=== PATIENT | male | born 1950 | race Caucasian/White ===

== ENCOUNTER → 2018-09-20 | Outpatient (CLI) | payer MEDICARE | END | disposition home or self-care (01) | LOC: CFH 07:35 | PROVIDERS: ATTEND Internal Medicine Cardiovascular Disease | DX: R01.1 Cardiac murmur, unspecified (principal); R06.02 Shortness of breath; F17.200 Nicotine dependence, unspecified, uncomplicated; R29.898 Other symptoms and signs involving the musculoskeletal system | CPT/HCPCS: 78452; 93017; A9502 ==

== ENCOUNTER 2018-10-09 09:51 | Day surgery (SDC) | payer MEDICARE ==
[~2018-10-09] VITALS: Ht 185.4 cm; Wt 98.6 kg
[2018-10-09] MEDS ORDERED: SODIUM CHLORIDE 0.9% 1,000 ML IV SCH ×2 (10:25→13:02)
[2018-10-09] MEDS ORDERED: DIPHENHYDRAMINE 50 MG/ML, 1ML IVPush ONE (10:30)
[2018-10-09 10:36] VITALS: BP 140/85
[2018-10-09] MEDS ORDERED: CARV3.1212 PO (10:41)
[2018-10-09] MEDS ORDERED: ALBU18HF INH (10:41)
[2018-10-09] MEDS ORDERED: ASPI81TA45 PO (10:41)
[2018-10-09] MEDS ORDERED: ATOR20TA37 PO (10:41)
[2018-10-09] MEDS ORDERED: FLUT12AE INH (10:41)
[2018-10-09] MEDS ORDERED: DIPHENHYDRAMINE 50 MG/ML, 1ML ONE (10:52)
[2018-10-09] MEDS ORDERED: NITROGLYCERIN 5 MG/ML, 10ML ONE (12:17)
[2018-10-09] MEDS ORDERED: TICAGRELOR 90 MG TABLET ONE (12:17)
[2018-10-09] MEDS ORDERED: VERAPAMIL 2.5 MG/ML, 2ML ONE (12:17)
[2018-10-09] MEDS ORDERED: HEPARIN 1,000 UNITS/ML, 10ML ONE (12:17)
[2018-10-09] MEDS ORDERED: BIVALIRUDIN 250 MG ONE (12:17)
[2018-10-09] MEDS ORDERED: MIDAZOLAM 1 MG/ML, 5ML ONE (12:17)
[2018-10-09] MEDS ORDERED: FENTANYL PF 100 MCG/2ML ONE (12:17)
[2018-10-09] MEDS ORDERED: LIDOCAINE-MPF 1%, 5ML ONE (12:18)
== END 2018-10-09 15:46 | disposition home or self-care (01) ==
LOC: CACL 09:51
PROVIDERS: ATTEND Internal Medicine Cardiovascular Disease
DX: I25.10 Atherosclerotic heart disease of native coronary artery without angina pectoris (principal); J44.9 Chronic obstructive pulmonary disease, unspecified; I25.5 Ischemic cardiomyopathy; Z87.891 Personal history of nicotine dependence; Z72.89 Other problems related to lifestyle
CPT/HCPCS: 93458; 99156; C1769; C1894; J1200; J1644; J2250; J3010; J7030; Q9967; J0583

== ENCOUNTER → 2018-10-31 | Outpatient (CLI) | payer MEDICARE ==
[~2018-10-31] MED LIST: ALBU18HF INH; ASPI81TA45 PO; ATOR20TA37 PO; CARV3.1212 PO; FLUT12AE INH
== END | disposition home or self-care (01) ==
LOC: CFH 08:00
PROVIDERS: ATTEND Nurse Practitioner
DX: I25.10 Atherosclerotic heart disease of native coronary artery without angina pectoris (principal); I35.8 Other nonrheumatic aortic valve disorders; M47.813 Spondylosis without myelopathy or radiculopathy, cervicothoracic region
CPT/HCPCS: 71250

== ENCOUNTER → 2018-11-07 | Outpatient (CLI) | payer MEDICARE | END | disposition home or self-care (01) | LOC: CVU 08:15 | PROVIDERS: ATTEND Internal Medicine Cardiovascular Disease | DX: I65.23 Occlusion and stenosis of bilateral carotid arteries (principal); I10 Essential (primary) hypertension; I25.2 Old myocardial infarction; E78.5 Hyperlipidemia, unspecified; Z87.891 Personal history of nicotine dependence | CPT/HCPCS: 93880 ==

== ENCOUNTER → 2018-12-07 | Outpatient (CLI) | payer MEDICARE ==
[~2018-12-07] MED LIST changes: +ASPIRIN 325 MG TABLET ONE; +CHOL500015 PO; +FENTANYL PF 250 MCG/5ML ONE; +LIDOCAINE-MPF 2% ,5ML ONE; +LOSA25TA25 PO; +METO25TA35 PO; +MIDAZOLAM 1 MG/ML, 2ML ONE; +ONDA4TAB7 PO; +OXYC-306 PO
[2018-12-07 14:19] LABS: BASOPHILS # (AUTO) 0.01 x10^3/uL (0-0.1); BASOPHILS % (AUTO) 0 % (0-1); EOSINOPHILS # (AUTO) 0.05 x10^3/uL (0-0.4); EOSINOPHILS % (AUTO) 1 % (1-7); LYMPHOCYTES # (AUTO) 1.33 x10^3/uL (1-3.4); LYMPHOCYTES % (AUTO) 24 % (22-44); MD NO; MEAN CORPUSCULAR HEMOGLOBIN 30.8 pg (27.5-34.5); MEAN CORPUSCULAR VOLUME 93.4 fL (81-97); MEAN PLATELET VOLUME 8.2 fL (7.4-10.4); MONOCYTES # (AUTO) 0.28 x10^3/uL (0.2-0.8); MONOCYTES % (AUTO) 5 % (2-9); NEUTROPHILS % (AUTO) 71 % (42-75); PLATELET COUNT 209 x10^3/uL (130-400); RED BLOOD COUNT 4.95 x10^6/uL (4.38-5.82)
[2018-12-07 14:29] LABS: ALANINE AMINOTRANSFERASE 26 U/L (12-78); ALBUMIN 3.8 g/dL (3.4-5.0); ANION GAP 8 mmol/L (5-15); CALCIUM 9.4 mg/dL (8.5-10.1); CHLORIDE 106 mmol/L (98-107); CREATININE 1.07 mg/dL (0.7-1.3)
[2018-12-07 14:31] LABS: ALKALINE PHOSPHATASE 77 U/L (45-117); BILIRUBIN,TOTAL 0.6 mg/dL (0.2-1.0); TOTAL PROTEIN 7.5 g/dL (6.4-8.2)
== END | disposition home or self-care (01) ==
LOC: STAR 13:09
PROVIDERS: ATTEND Family Medicine
DX: Z01.818 Encounter for other preprocedural examination (principal); I65.22 Occlusion and stenosis of left carotid artery
CPT/HCPCS: 36415; 80053; 85025; 93005

== ENCOUNTER 2018-12-11 11:25 | Inpatient (IN) | payer MEDICARE ==
[~2018-12-11] VITALS: Ht 185.4 cm; Wt 101.0 kg
[~2018-12-11 11:25] MED LIST changes: -ASPIRIN 325 MG TABLET ONE; +BUPIVACAINE/EPI 0.5% 1:200K ONE; -FENTANYL PF 250 MCG/5ML ONE; +HEPARIN 1,000 UNITS/ML, 10ML ONE; -LIDOCAINE-MPF 2% ,5ML ONE; -MIDAZOLAM 1 MG/ML, 2ML ONE; -ONDA4TAB7 PO; -OXYC-306 PO; +PAPAVERINE 30 MG/ML, 2ML ONE; +PROTAMINE SULFATE 10 MG/ML, 5ML ONE; +THROMBIN 20,000 UNIT VIAL TP ONE
[2018-12-11] MEDS ORDERED: LIDOCAINE 1%, 20ML ONE (11:26)
[2018-12-11] MEDS ORDERED: LACTATED RINGERS 1,000 ML IV SCH (11:36)
[2018-12-11 11:56] VITALS: BP 132/83
[2018-12-11] MEDS ORDERED: NITROGLYCERIN/D5W PMX 250 ML ONE (12:58)
[2018-12-11] MEDS ORDERED: MIDAZOLAM 1 MG/ML, 5ML ONE (13:29)
[2018-12-11] MEDS ORDERED: ONDANSETRON 2MG/ML, 2ML IV PRN ×2 (13:30→18:30)
[2018-12-11] MEDS ORDERED: hydrALAzine 20 MG/ML, 1ML IV PRN ×2 (13:30→18:30)
[2018-12-11] MEDS ORDERED: MORPHINE SULFATE 4 MG/ML, 1ML IVPush PRN (13:30)
[2018-12-11] MEDS ORDERED: PROMETHAZINE 25 MG/ML, 1ML IM PRN ×2 (13:30)
[2018-12-11] MEDS ORDERED: PROMETHAZINE 25 MG/ML, 1ML IV PRN (13:30)
[2018-12-11] MEDS ORDERED: PROMETHAZINE 12.5 MG SUPP PR PRN (13:30)
[2018-12-11] MEDS ORDERED: PROMETHAZINE 25 MG SUPP PR PRN (13:30)
[2018-12-11] MEDS ORDERED: ONDANSETRON ODT 8 MG PO PRN (13:30)
[2018-12-11] MEDS ORDERED: HYDROmorphone 2 MG/ML, 1ML IVPush PRN (13:30)
[2018-12-11] MEDS ORDERED: LABETALOL 5MG/ML, 20ML IV PRN (13:30)
[2018-12-11] MEDS ORDERED: MEPERIDINE/PF 25MG/0.5ML IVPush PRN (13:30)
[2018-12-11] MEDS ORDERED: FENTANYL PF 100 MCG/2ML ONE ×2 (15:35→17:05)
[2018-12-11] MEDS ORDERED: OXYcodone 5 MG/5 ML ORAL.SOL UDC ONE ×2 (15:35→16:40)
[2018-12-11] MEDS: OXYcodone 5 MG/5 ML ORAL.SOL UDC PO PRN ×2 (15:38→16:42)
[2018-12-11] MEDS: FENTANYL PF 100 MCG/2ML IV PRN ×5 (15:40→17:10)
[2018-12-11] MEDS ORDERED: ASPIRIN 325 MG TABLET EC PO ONE (16:00)
[2018-12-11] MEDS ORDERED: GLYCOPYRROLATE 0.4 MG/2 ML, 2ML ONE (16:17)
[2018-12-11] MEDS: GLYCOPYRROLATE 0.2MG/1ML, 5ML IVPush PRN ×2 (16:23→16:45)
[2018-12-11] MEDS ORDERED: HYDROcodone/APAP 5/325 TABLET PO PRN (18:30)
[2018-12-11] MEDS ORDERED: morphine SULFATE 10 MG/ML, 1ML IV PRN (18:30)
[2018-12-11] MEDS ORDERED: ACETAMINOPHEN 500 MG TABLET PO PRN (18:30)
[2018-12-11] MEDS ORDERED: LABETALOL 5MG/ML, 20ML IVPush PRN (18:30)
[2018-12-11] MEDS: SODIUM CHLORIDE FLUSH 10ML SYR IVF SCH (20:08)
[2018-12-11] MEDS: POTASSIUM CHLORIDE 20 MEQ in LACTATED RINGERS 1,000 ML IV SCH (20:08)
[2018-12-11] MEDS ORDERED: ATORVASTATIN 20 MG TABLET PO SCH (21:00)
[2018-12-11] MEDS: CEFAZOLIN PMX 2GM/100ML 100 ML IVPB SCH (21:42)
[2018-12-11] MEDS ORDERED: SODIUM CHLORIDE 0.9%, 500ML IVBOLUS ONE (22:00)
[2018-12-11 22:25] VITALS: BP 87/54
[2018-12-11 23:54] VITALS: BP 93/54
[2018-12-12 05:00] VITALS: BP 95/58
[2018-12-12] MEDS: CEFAZOLIN PMX 2GM/100ML 100 ML IVPB SCH (05:52)
[2018-12-12 06:36] VITALS: BP 107/62
[2018-12-12] MEDS: POTASSIUM CHLORIDE 20 MEQ in LACTATED RINGERS 1,000 ML IV SCH (06:44)
[2018-12-12] MEDS: SODIUM CHLORIDE FLUSH 10ML SYR IVF SCH (08:32)
[2018-12-12] MEDS ORDERED: METOPROLOL TARTRATE 25 MG TABLET PO SCH (09:00)
[2018-12-12] MEDS ORDERED: ASPIRIN 325 MG TABLET EC PO SCH (09:00)
[2018-12-12] MEDS ORDERED: LOSARTAN 25MG TABLET PO SCH (09:00)
[2018-12-12] MEDS ORDERED: CHOLECALCIFEROL 5,000u TAB PO SCH (09:00)
[2018-12-12] MEDS ORDERED: OXYC-306 PO (09:50)
[2018-12-12] MEDS ORDERED: ONDA4TAB7 PO (09:51)
[2018-12-12 10:00] VITALS: BP 113/67
== END 2018-12-12 11:00 | disposition home or self-care (01) | DRG 38 ==
LOC: ORIP 11:25 → 4NOR 17:56 → DCLOUNGE 12-12 10:45
PROVIDERS: ADMIT Surgery; ATTEND Surgery
PROC: 03CN0ZZ Extirpation of Matter from Left External Carotid Artery, Open Approach (ICD-10-PCS; 2018-12-11)
PROC: 03CL0ZZ Extirpation of Matter from Left Internal Carotid Artery, Open Approach (ICD-10-PCS; 2018-12-11)
PROC: 03UJ0KZ Supplement Left Common Carotid Artery with Nonautologous Tissue Substitute, Open Approach (ICD-10-PCS; 2018-12-11)
PROC: 03UL0KZ Supplement Left Internal Carotid Artery with Nonautologous Tissue Substitute, Open Approach (ICD-10-PCS; 2018-12-11)
PROC: 3E0T3BZ Introduction of Anesthetic Agent into Peripheral Nerves and Plexi, Percutaneous Approach (ICD-10-PCS; 2018-12-11)
PROC: 03HY32Z Insertion of Monitoring Device into Upper Artery, Percutaneous Approach (ICD-10-PCS; 2018-12-11)
PROC: 03CJ0ZZ Extirpation of Matter from Left Common Carotid Artery, Open Approach (ICD-10-PCS; principal; 2018-12-11 13:30)
DX: I65.22 Occlusion and stenosis of left carotid artery (principal); I50.42 Chronic combined systolic (congestive) and diastolic (congestive) heart failure; E78.5 Hyperlipidemia, unspecified; I10 Essential (primary) hypertension; I25.5 Ischemic cardiomyopathy; I35.0 Nonrheumatic aortic (valve) stenosis; I25.10 Atherosclerotic heart disease of native coronary artery without angina pectoris; Z82.49 Family history of ischemic heart disease and other diseases of the circulatory system; I11.0 Hypertensive heart disease with heart failure
CPT/HCPCS: 36415; 86850; 86900; C1729; G0378; J1644; J2250; J2720; J3010; J3480; C1768; J0690; J2440; J7040; J7120

== ENCOUNTER → 2018-12-22 | Outpatient (CLI) | payer MEDICARE ==
[~2018-12-22] MED LIST changes: -BUPIVACAINE/EPI 0.5% 1:200K ONE; -HEPARIN 1,000 UNITS/ML, 10ML ONE; +METOPROLOL 1 MG/ML, 5ML ONE; +OMNIPAQUE 350 MG/ML, 150 ML BOTTLE ONE; +ONDA4TAB7 PO; +OXYC-306 PO; -PAPAVERINE 30 MG/ML, 2ML ONE; -PROTAMINE SULFATE 10 MG/ML, 5ML ONE; -THROMBIN 20,000 UNIT VIAL TP ONE
== END | disposition home or self-care (01) ==
LOC: RAD 10:48
PROVIDERS: ATTEND Internal Medicine Cardiovascular Disease
DX: I35.1 Nonrheumatic aortic (valve) insufficiency (principal); K76.0 Fatty (change of) liver, not elsewhere classified; D73.89 Other diseases of spleen; K57.30 Diverticulosis of large intestine without perforation or abscess without bleeding; K42.9 Umbilical hernia without obstruction or gangrene; K40.90 Unilateral inguinal hernia, without obstruction or gangrene, not specified as recurrent; N40.0 Benign prostatic hyperplasia without lower urinary tract symptoms; I71.4 Abdominal aortic aneurysm, without rupture; I74.3 Embolism and thrombosis of arteries of the lower extremities; I51.7 Cardiomegaly
CPT/HCPCS: 71275; 74174; Q9967

== ENCOUNTER 2019-01-09 06:07 | Inpatient (IN) | payer MEDICARE ==
[~2019-01-09] VITALS: Ht 185.4 cm; Wt 94.0 kg
[~2019-01-09 06:07] MED LIST changes: -METOPROLOL 1 MG/ML, 5ML ONE; -OMNIPAQUE 350 MG/ML, 150 ML BOTTLE ONE
[2019-01-09] MEDS ORDERED: SODIUM CHLORIDE 0.9% 1,000 ML IV ONE (06:21)
[2019-01-09 06:29] VITALS: BP 126/73
[2019-01-09] MEDS ORDERED: ONDANSETRON 2MG/ML, 2ML IVPush PRN (06:30)
[2019-01-09] MEDS ORDERED: FENTANYL PF 100 MCG/2ML ONE (06:51)
[2019-01-09] MEDS ORDERED: ROCURONIUM 10MG/ML,5ML ONE (06:52)
[2019-01-09] MEDS ORDERED: PROPOFOL 10 MG/ML, 20ML ONE (06:52)
[2019-01-09] MEDS ORDERED: SUCCINYLCHOLINE 20 MG/ML, 10ML ONE (06:52)
[2019-01-09 06:55] LABS: BASOPHILS # (AUTO) 0.02 x10^3/uL (0-0.1); BASOPHILS % (AUTO) 0 % (0-1); EOSINOPHILS # (AUTO) 0.11 x10^3/uL (0-0.4); EOSINOPHILS % (AUTO) 2 % (1-7); LYMPHOCYTES # (AUTO) 1.39 x10^3/uL (1-3.4); LYMPHOCYTES % (AUTO) 22 % (22-44); MD NO; MEAN CORPUSCULAR HEMOGLOBIN 30.9 pg (27.5-34.5); MEAN CORPUSCULAR HGB CONC 32.2 g/dL (33.2-36.2); MEAN PLATELET VOLUME 7.7 fL (7.4-10.4); MONOCYTES # (AUTO) 0.39 x10^3/uL (0.2-0.8); MONOCYTES % (AUTO) 6 % (2-9); NEUTROPHILS # (AUTO) 4.36 x10^3/uL (1.8-6.8); NEUTROPHILS % (AUTO) 69 % (42-75); PLATELET COUNT 202 x10^3/uL (130-400); RED BLOOD COUNT 4.57 x10^6/uL (4.38-5.82)
[2019-01-09] MEDS ORDERED: DIPH25CA61 PO (06:57)
[2019-01-09 07:04] LABS: ALANINE AMINOTRANSFERASE 26 U/L (12-78); ALBUMIN 3.8 g/dL (3.4-5.0); ANION GAP 4 mmol/L (5-15); CALCIUM 9.4 mg/dL (8.5-10.1); CHLORIDE 109 mmol/L (98-107); CREATININE 0.98 mg/dL (0.7-1.3); INTERNATIONAL NORMALIZED RATIO 0.91 (0.93-1.1); PROTHROMBIN TIME 9.6 Seconds (9.6-11.5)
[2019-01-09 07:08] LABS: ALKALINE PHOSPHATASE 71 U/L (45-117); BILIRUBIN,TOTAL 0.4 mg/dL (0.2-1.0); TOTAL PROTEIN 6.9 g/dL (6.4-8.2)
[2019-01-09] MEDS ORDERED: DIPHENHYDRAMINE 50 MG/ML, 1ML ONE (07:17)
[2019-01-09] MEDS ORDERED: PROTAMINE SULFATE 10 MG/ML, 5ML ONE (07:19)
[2019-01-09] MEDS ORDERED: DIPHENHYDRAMINE 50 MG/ML, 1ML IVPush ONE (07:30)
[2019-01-09] MEDS: CHLORHEXIDINE 15 ML UDC MM PRN ×2 (07:37→07:38)
[2019-01-09] MEDS ORDERED: PROTAMINE SULFATE 10 MG/ML, 25ML ONE (08:41)
[2019-01-09] MEDS ORDERED: HEPARIN 1,000 UNITS/ML, 30ML ONE (08:41)
[2019-01-09] MEDS ORDERED: ACETAMINOPHEN 325 MG TABLET PO PRN (09:00)
[2019-01-09] MEDS ORDERED: DIPHENHYDRAMINE 25 MG CAPSULE PO PRN (09:00)
[2019-01-09] MEDS ORDERED: CLOPIDOGREL 300 MG TABLET PO ONE (09:00)
[2019-01-09] MEDS: LOSARTAN 25MG TABLET PO SCH (09:00)
[2019-01-09] MEDS ORDERED: hydrALAzine 20 MG/ML, 1ML IVPush PRN (09:00)
[2019-01-09] MEDS ORDERED: LABETALOL 20 MG/4 ML IVPush PRN (09:00)
[2019-01-09] MEDS: METOPROLOL TARTRATE 25 MG TABLET PO SCH (09:00)
[2019-01-09] MEDS: CHOLECALCIFEROL 5,000u TAB PO SCH (09:00)
[2019-01-09] MEDS ORDERED: ASPIRIN 81 MG TABLET EC ONE (09:18)
[2019-01-09] MEDS ORDERED: CLOPIDOGREL 300 MG TABLET ONE (09:18)
[2019-01-09] MEDS: ASPIRIN 81 MG TABLET EC PO SCH (10:06)
[2019-01-09 11:04] VITALS: BP 120/72
[2019-01-09 13:14] VITALS: BP 116/63
[2019-01-09 20:40] VITALS: BP 106/60
[2019-01-09] MEDS ORDERED: ATORVASTATIN 20 MG TABLET PO SCH (21:00)
[2019-01-10 02:08] VITALS: BP 107/59
[2019-01-10 05:36] LABS: BASOPHILS # (AUTO) 0.02 x10^3/uL (0-0.1); BASOPHILS % (AUTO) 0 % (0-1); EOSINOPHILS # (AUTO) 0.09 x10^3/uL (0-0.4); EOSINOPHILS % (AUTO) 1 % (1-7); LYMPHOCYTES # (AUTO) 1.66 x10^3/uL (1-3.4); LYMPHOCYTES % (AUTO) 25 % (22-44); MD NO; MEAN CORPUSCULAR HEMOGLOBIN 31.5 pg (27.5-34.5); MEAN CORPUSCULAR HGB CONC 32.8 g/dL (33.2-36.2); MEAN CORPUSCULAR VOLUME 96.3 fL (81-97); MONOCYTES # (AUTO) 0.51 x10^3/uL (0.2-0.8); MONOCYTES % (AUTO) 8 % (2-9); NEUTROPHILS # (AUTO) 4.36 x10^3/uL (1.8-6.8); NEUTROPHILS % (AUTO) 66 % (42-75); PLATELET COUNT 133 x10^3/uL (130-400); RED BLOOD COUNT 3.79 x10^6/uL (4.38-5.82); RED CELL DISTRIBUTION WIDTH 13.3 % (9.4-14.8)
[2019-01-10 05:43] LABS: CHLORIDE 110 mmol/L (98-107)
[2019-01-10 06:05] LABS: ANION GAP 6 mmol/L (5-15); CALCIUM 8.6 mg/dL (8.5-10.1); CREATININE 0.84 mg/dL (0.7-1.3)
[2019-01-10] MEDS ORDERED: DEXAMETHASONE 4 MG/ML, 1ML ONE (07:40)
[2019-01-10] MEDS ORDERED: PHENYLEPHRINE 10 MG/ML ONE (07:40)
[2019-01-10] MEDS ORDERED: CEFAZOLIN 1,000 MG ONE (07:40)
[2019-01-10] MEDS ORDERED: ONDANSETRON 2MG/ML, 2ML ONE (07:40)
[2019-01-10 07:52] VITALS: BP 125/71
[2019-01-10] MEDS: ASPIRIN 81 MG TABLET EC PO SCH (08:12)
[2019-01-10] MEDS: LOSARTAN 25MG TABLET PO SCH (08:13)
[2019-01-10] MEDS: METOPROLOL TARTRATE 25 MG TABLET PO SCH (08:13)
[2019-01-10] MEDS: CHOLECALCIFEROL 5,000u TAB PO SCH (08:13)
[2019-01-10] MEDS ORDERED: CLOPIDOGREL 75 MG TABLET PO SCH (09:00)
[2019-01-10] MEDS ORDERED: ASPIRIN 81 MG TABLET EC PO SCH (09:00)
[2019-01-10] MEDS ORDERED: CLOP75TA PO (13:33)
[2019-01-10 14:15] VITALS: BP 108/62
== END 2019-01-10 15:45 | disposition home or self-care (01) | DRG 266 ==
LOC: ORIP 06:07 → 5SO 11:03 → DCLOUNGE 01-10 15:27
PROVIDERS: ADMIT Internal Medicine Cardiovascular Disease; ATTEND Internal Medicine Cardiovascular Disease
PROC: B246ZZ4 Ultrasonography of Right and Left Heart, Transesophageal (ICD-10-PCS; 2019-01-09)
PROC: B4101ZZ Fluoroscopy of Abdominal Aorta using Low Osmolar Contrast (ICD-10-PCS; 2019-01-09)
PROC: 02RF38Z Replacement of Aortic Valve with Zooplastic Tissue, Percutaneous Approach (ICD-10-PCS; principal; 2019-01-09 08:00)
DX: I35.0 Nonrheumatic aortic (valve) stenosis (principal); I50.33 Acute on chronic diastolic (congestive) heart failure; I25.10 Atherosclerotic heart disease of native coronary artery without angina pectoris; I25.82 Chronic total occlusion of coronary artery; I25.5 Ischemic cardiomyopathy; I73.9 Peripheral vascular disease, unspecified; E78.5 Hyperlipidemia, unspecified; Z91.013 Allergy to seafood
CPT/HCPCS: 33361; 36415; 80048; 80053; 83880; 85025; 85347; 85610; 85730; 86850; 86900; 86923; 93005; 93306; 93312; 93321; 93325; 93355; C1760; C1769; C1894; G0378; J0690; J1100; J1644; J2405; J2704; J2720; J3010; J0330; J1200; J2370; J7030; Q9967

== ENCOUNTER → 2019-02-13 | Outpatient (CLI) | payer MEDICARE ==
[~2019-02-13] MED LIST changes: +CLOP75TA PO; +DIPH25CA61 PO
== END | disposition home or self-care (01) ==
LOC: CVU 08:31
PROVIDERS: ATTEND Internal Medicine Cardiovascular Disease
DX: I34.0 Nonrheumatic mitral (valve) insufficiency (principal); I35.0 Nonrheumatic aortic (valve) stenosis; I10 Essential (primary) hypertension; I25.2 Old myocardial infarction; Z87.891 Personal history of nicotine dependence
CPT/HCPCS: 93306

== ENCOUNTER → 2019-06-12 | Outpatient (CLI) | payer MEDICARE | END | disposition home or self-care (01) | LOC: CVU 08:02 | PROVIDERS: ATTEND Surgery | DX: I65.23 Occlusion and stenosis of bilateral carotid arteries (principal); I70.8 Atherosclerosis of other arteries; I25.5 Ischemic cardiomyopathy; I10 Essential (primary) hypertension; E78.5 Hyperlipidemia, unspecified; I35.0 Nonrheumatic aortic (valve) stenosis; Z82.49 Family history of ischemic heart disease and other diseases of the circulatory system; I25.2 Old myocardial infarction; Z87.891 Personal history of nicotine dependence | CPT/HCPCS: 93880 ==

== ENCOUNTER 2020-01-15 10:46 | Outpatient (CLI) | payer MEDICARE | END 2020-01-15 23:59 | disposition home or self-care (01) | LOC: CVU 10:46 | PROVIDERS: ATTEND Internal Medicine Cardiovascular Disease | DX: I34.0 Nonrheumatic mitral (valve) insufficiency (principal); E78.5 Hyperlipidemia, unspecified; I25.5 Ischemic cardiomyopathy; I71.4 Abdominal aortic aneurysm, without rupture | CPT/HCPCS: 93306; 93356 ==